=== PATIENT | female | born 1985 | race American Indian/Alaskan Native ===

== ENCOUNTER 2019-11-01 17:21 | Emergency (ER) | payer SELFPAY ==
[2019-11-01 18:31] VITALS: BP 121/81
--- NOTE | 2019-11-01 20:02 | Emergency Department Report ---
HPI - General Chief Complaint: Dyspnea/Respdistress Time Seen by Provider: 11/01/19 19:48 - HPI HPI: This is a 34-year-old female here for asthma flareup. Patient says that she ran out of her asthma pump. She has a recent history of blood transfusion related to fibroids but she is not having any problems at present. Patient has a history of asthma and says she last used her pump in September. She says she has allergies and she feels this was causing her asthma to flareup. Denies any fever or chills. Denies any chest pain or shortness of breath. Reports cough and wheezing that similar to her previous asthma exacerbation. Denies any nausea vomiting or diarrhea. Reports nasal congestion and runny nose. Pain is 0 out of 10 ED Past Medical Hx - Past Medical History Previous Medical History?: Yes Hx Asthma: Yes Additional medical history: vaginal bleeding r/t fibroids. - Surgical History Past Surgical History?: No - Family History Family history: asthma, hypertension - Social History Smoking Status: Never Smoker Substance Use Type: None - Medications Home Medications: Home Medications Medication Instructions Recorded Confirmed Last Taken Type ALBUTEROL NEB's [Proventil 0.083% 3 ml IH Q6H PRN #1 box 11/01/19 Unknown Rx NEBS] Albuterol INH(or & Nicu Only) 2 puff IH Q6H PRN #1 inhalation 11/01/19 Unknown Rx [ProAir HFA Inhaler] Cetirizine HCl [ZyrTEC] 10 mg PO QAM 14 Days #14 capsule 11/01/19 Unknown Rx Fluticasone [Flonase] 1 spray NS QDAY 14 Days #1 bottle 11/01/19 Unknown Rx Inhaler, Assist Devices [Space 1 each MC ONCE #1 spacer 11/01/19 Unknown Rx Chamber Plus] Nebulizer Accessories [Sootheneb 1 each MC ONCE #1 each 11/01/19 Unknown Rx [id number] Adult Mask] methylPREDNISolone [Medrol 4MG 4 mg PO QDAY 6 Days #1 tab.ds.pk 11/01/19 Unknown Rx DOSEPAK (21 tabs)] ED Review of Systems ROS: Stated complaint: SOB/HEADACHE Other details as noted in HPI Constitutional: denies: chills, fever ENT: congestion. denies: ear pain, throat pain Respiratory: cough, wheezing. denies: shortness of breath, SOB with exertion, SOB at rest, stridor Cardiovascular: denies: chest pain, palpitations, dyspnea on exertion, edema, syncope Gastrointestinal: denies: abdominal pain, nausea, vomiting, diarrhea Genitourinary: denies: dysuria, hematuria Musculoskeletal: denies: back pain, joint swelling, arthralgia Skin: denies: rash Neurological: denies: headache, numbness, paresthesias, abnormal gait, vertigo Psychiatric: denies: anxiety Physical Exam - Physical Exam Vital Signs: Vital Signs 11/01/19 11/01/19 18:28 18:31 Temperature 98.3 F Pulse Rate 77 Respiratory 16 Rate Blood Pressure 121/81 O2 Sat by Pulse 99 Oximetry General: This is a 34-year-old female well-nourished well-developed in no acute distress. Patient is nontoxic in appearance Physical Exam: Head: Normocephalic atraumatic Ears:BIateral middle air congested without erythema and loss of bony landmarks. Austyn EAC with normal exam. No mastoid bone tenderness. Mouth: Moist, no pharyngeal erythema or exudate . UVULA midline and oral airways patent. No peritonsillar abscess Neck: Nontender to palpate, supple, normal range of motion. No adenopathy. No c- spine tenderness. Nose: Bilateral nasal mucosa congested/erythema with clear drainage. Maxillary and frontal sinuses non-tender to palpate. Eyes: Bilateral Sclerae and conjunctiva without injection. Bilateral pupils equal and reactive to light. Bilateral lids are normal. Lungs: Wheezing to upper lung inman. No rhonchi or rales. Normal work of breathing and no chest wall tenderness CV: S1, S2. Regular rate and rhythm negative murmur. Capillary refill is less than 3 seconds Abdomen: Nontender to palpation in all quadrants: No guarding or rebound tenderness. Positive bowel sounds in all quadrants Extremity: No clubbing, cyanosis or edema. +2 pulses in all extremities and no neurovascular compromise Skin: Clean dry and intact, no rashes or lesions Psych: Normal mood and behavior ED Course Vital Signs 11/01/19 11/01/19 18:28 18:31 Temperature 98.3 F Pulse Rate 77 Respiratory 16 Rate Blood Pressure 121/81 O2 Sat by Pulse 99 Oximetry - Reevaluation(s) Reevaluation #1: 11/01/19 20:42 Patient received albuterol 5 mg and Atrovent 1 mg nebulizer treatment. She received Decadron 10 mg IM. Patient lung sounds are still with some wheezing she reports she is feeling the same. Vital signs stable she is afebrile and in no acute distress. Reevaluation #2: 11/01/19 21:51 Patient started on IV magnesium and given additional albuterol 5 mg nebulizer treatment. She is stable and in no acute distress and we will reevaluate. Reevaluation #3: 11/01/19 22:49 Patient is now feeling better. Her lung sounds are clear status post magnesium IV and additional albuterol nebulizer treatment. ED Medical Decision Making - Medical Decision Making This is a 34 female here for asthma exacerbation and report that she run off of her pump. Lung sounds wheezing to upper lung inman with nasal congestion and runny nose and dry cough. vital signs stable she is afebrile. Chest x-ray shows mild bronchial changes otherwise stable patient with mild asthma exacerbation and she receive nebulizer treatment and Decadron emergency room and upon reevaluation her lungs are clear. Patient stable and in no acute distress and discharged home in stable condition with prescription for albuterol inhaler, albuterol nebulizer along with machine and Medrol Dosepak. Zyrtec and Flonase and to follow-up with her primary care in 1 to 2 days. She voiced understanding of diagnosis and treatment plan. - Differential Diagnosis Asthma exacerbation, bronchitis, URI with cough and congestion Critical care attestation.: If time is entered above; I have spent that time in minutes in the direct care of this critically ill patient, excluding procedure time. ED Disposition Clinical Impression: Asthma exacerbation, mild Allergic rhinitis Qualifiers: Allergic rhinitis trigger: unspecified Allergic rhinitis seasonality: seasonal Qualified Code(s): J30.2 - Other seasonal allergic rhinitis Disposition: DC-01 TO HOME OR SELFCARE Is pt being admited?: No Does the pt Need Aspirin: No Condition: Stable Instructions: Asthma (ED), Allergic Rhinitis (ED) Additional Instructions: Please take medication as prescribed Follow-up with your primary care physician in 1 to 2 days If your symptoms return, return to the emergency room Prescriptions: Fluticasone [Flonase] 1 spray NS QDAY 14 Days #1 bottle methylPREDNISolone [Medrol 4MG DOSEPAK (21 tabs)] 4 mg PO QDAY 6 Days #1 tab.ds.pk Albuterol INH(or & Nicu Only) [ProAir HFA Inhaler] 2 puff IH Q6H PRN #1 inhalation PRN Reason: Shortness Of Breath ALBUTEROL NEB's [Proventil 0.083% NEBS] 3 ml IH Q6H PRN #1 box PRN Reason: cough/wheeze Nebulizer Accessories [Sootheneb [id number] Adult Mask] 1 each MC ONCE #1 each Inhaler, Assist Devices [Space Chamber Plus] 1 each MC ONCE #1 spacer Cetirizine HCl [ZyrTEC] 10 mg PO QAM 14 Days #14 capsule Referrals: PRIMARY CAREMD [Primary Care Provider] - 11/02/19 Forms: Work/School Release Form(ED)
[2019-11-01] MEDS ORDERED: IPRATROPIUM 0.02% NEBU 2.5 ML IH ONE (20:09)
[2019-11-01] MEDS ORDERED: ALBUTEROL 2.5 MG/3 ML NEBU IH ONE ×2 (20:09→21:00)
[2019-11-01] MEDS ORDERED: dexAMETHasone 20 MG/5 ML VIAL IM ONE (20:09)
[2019-11-01] MEDS ORDERED: MAGNESIUM SULFATE 2 GM/50 ML BAG IV ONE (21:02)
--- NOTE | 2019-11-01 21:59 | XRay Report ---
CHEST 2 VIEWS INDICATION: MAIN: Wheezing and cough; Pt. c/o asthma exacerbation. No acute distress in triage. Recent hx of bl ood transfusion r/t uterine fibroids. . COMPARISON: None FINDINGS: Support devices: None. Heart: Within normal limits. Lungs/pleura: Mild central peribronchial thickening with no consolidation or effusion. No pneumothor ax. Additional findings: None. IMPRESSION: 1. Pulmonary findings as above. Signer Name: Víctor Crouch MD Signed: 11/01/2019 9:54 PM Workstation Name: [id number]
== END 2019-11-01 23:00 | disposition home or self-care (01) ==
LOC: ED 17:21
DX: J45.901 Unspecified asthma with (acute) exacerbation (principal); J30.2 Other seasonal allergic rhinitis
CPT/HCPCS: 71046; 94640; 96365; 96372; 99283; J1100; J3475; 94644